=== PATIENT | female | born 1970 | race Two or more races ===

== ENCOUNTER 2020-04-20 17:57 | Emergency (ER) | payer MEDICAID ==
[~2020-04-20] VITALS: Ht 157.5 cm; Wt 77.6 kg
--- NOTE | 2020-04-20 18:25 | NUR ---
CAME IN FOR GENERALIZED BODYACHES, COUGH X 2 DAYS. HX ASTHMA, INHALER NOT HELPING, TO ER BED 8, HOOKED TO MONITOR, CHANGED TO HOSP GOWN, WARM BLANKET PROVIDED, PATIENT AAO x 4. AWAITING MD KAMARA.
--- NOTE | 2020-04-20 18:37 | NUR ---
DR LEMUS AT BEDSIDE
[2020-04-20] MEDS ORDERED: DEXAMETHASONE SOD PHOSPHATE 10 MG/ML VIAL IV ONE (19:00)
[2020-04-20] MEDS ORDERED: ALBUTEROL FS 2.5 MG/3 ML VIAL.NEB CONTNEB ONE ×2 (19:00→20:30)
[2020-04-20] MEDS ORDERED: DEXAMETHASONE SOD PHOSPHATE 4 MG in IV D5W 50 ML IV ONE (19:00)
--- NOTE | 2020-04-20 19:08 | NUR ---
BLOOD DRAWN AND SENT TO THE LAB.
[2020-04-20 19:12] LABS: BASOPHILS # (AUTO) 0.1 /CMM (0.0-0.2); BASOPHILS % (AUTO) 1.5 % (0.0-2.0); EOSINOPHILS % (AUTO) 9.8 % (0.0-6.0); HEMATOCRIT 38 % (33-45); HEMOGLOBIN 12.5 g/dL (11.5-14.8); LYMPHOCYTES % (AUTO) 32.6 % (20.0-44.0); MEAN CORPUSCULAR HGB CONC 33 g/dl (31.0-36.0); MEAN CORPUSCULAR VOLUME 83 fL (82-100); MONOCYTES # (AUTO) 0.4 /CMM (0.1-1.30); MONOCYTES % (AUTO) 6.7 % (2.0-12.0); NEUTROPHILS % (AUTO) 49.4 % (43.0-81.0); PLATELET COUNT (AUTO) 279 /CMM (150-450)
--- NOTE | 2020-04-20 19:13 | NUR ---
XRAY AT BEDSIDE FOR XRAY
--- NOTE | 2020-04-20 19:16 | NUR ---
CALLED FOR COVID SWAB
--- NOTE | 2020-04-20 19:24 | NUR ---
CALLED FOR MEDICATION DECADRON 4MG IV IN 50ML OF D5W
[2020-04-20] MEDS ORDERED: MORPHINE SULFATE INJ 2 MG/ML DISP.SYRIN IV ONE (19:30)
[2020-04-20] MEDS ORDERED: ONDANSETRON HCL/PF 4 MG/2 ML VIAL IVP ONE (19:30)
[2020-04-20] MEDS ORDERED: DEXAMETHASONE SOD PHOSPHATE 10 MG/ML VIAL ONE (19:31)
[2020-04-20 19:34] LABS: ABG BASE EXCESS -0.8 mmol/L; ABG OXYGEN SATURATION 92.5 % (92.0-98.5); ABG PCO2 35.2 mmHg (35.0-45.0); ABG PH 7.432 (7.350-7.450); ABG PO2 66.4 mmHg (75.0-100.0); AaDO2 41.2 mmHg; COHb 0.3 % (0.5-1.5); MetHb 0.5 % (0.0-1.5); O2Hb 91.8 % (94.0-97.0); SITE, ABG Right Radial; VENT MODE, BG RA
--- NOTE | 2020-04-20 19:36 | NUR ---
PATIENT CURRENTLY UNDERGOING BREATHING TREATMENT.
[2020-04-20] MEDS ORDERED: ALBUTEROL FS 2.5 MG/3 ML VIAL.NEB ONE ×2 (19:37→20:37)
[2020-04-20 19:43] LABS: CALCIUM, SERUM 8.8 mg/dL (8.5-10.1); CARBON DIOXIDE 27 mmol/L (21-32); CHLORIDE 105 mmol/L (98-107); CREATININE 0.7 mg/dL (0.6-1.3); GLUCOSE 109 mg/dL (74-106); POTASSIUM 3.4 mmol/L (3.5-5.1); SODIUM SERUM 140 mmol/L (136-145); UREA NITROGEN, BLOOD 13 mg/dL (7-18)
[2020-04-20 19:48] LABS: ALANINE AMINOTRANSFERASE 18 U/L (12-78); ALBUMIN 3.5 g/dL (3.4-5.0); ALKALINE PHOSPHATASE 113 U/L (46-116); ASPARTATE AMINOTRANSFERASE 22 U/L (15-37); B-TYPE NATRIURETIC PEPTIDE 119 PG/ML (0-125); BILIRUBIN,TOTAL 0.4 mg/dL (0.2-1.0); TOTAL PROTEIN, SERUM 7.5 g/dL (6.4-8.2)
--- NOTE | 2020-04-20 19:52 | NUR ---
COVID SWAB SAMPLE COLLECTED AND SENT WITH CAR REPAIRER APPRENTICE.
[2020-04-20 20:45] LABS: CREATINE KINASE, TOTAL 67 U/L (26-192); FERRITIN 9 ng/mL (8-388)
[2020-04-20 20:46] LABS: C-REACTIVE PROTEIN 1.5 mg/dL (0.0-0.9)
--- NOTE | 2020-04-20 21:04 | NUR ---
CALLED LAB FOR RESULT OF COVID-19, AWAITING RESULT.
--- NOTE | 2020-04-20 21:48 | NUR ---
LAB CALLED REGARDING COVID NEGATIVE RESULT.
[2020-04-20 22:03] VITALS: BP 128/78
--- NOTE | 2020-04-20 22:03 | NUR ---
IV removed. Catheter intact and site benign. Pressure and 4x4 applied to site. No bleeding noted.
--- NOTE | 2020-04-20 22:03 | NUR ---
Patient discharged to home in stable condition. Written and verbal after care instructions given. Patient verbalizes understanding of instruction.
== END 2020-04-20 22:04 | disposition home or self-care (01) ==
LOC: ER 17:57
DX: J45.901 Unspecified asthma with (acute) exacerbation (principal); R94.31 Abnormal electrocardiogram [ECG] [EKG]; Z88.6 Allergy status to analgesic agent; Z88.0 Allergy status to penicillin; R05 Cough; R09.02 Hypoxemia; Z20.828 Contact with and (suspected) exposure to other viral communicable diseases
CPT/HCPCS: 36415; 36600 ×2; 71045; 80053; 82550; 82728; 82803; 83605; 83615; 83880; 84145; 84484; 85025; 85385; 85730; 86140; 87040 ×2; 87426; 93005 ×2; 94640 ×2; 96374; 99285; C9803; J1100 ×2; J7060